=== PATIENT | male | born 1990 | race Caucasian/White ===

== ENCOUNTER 2017-08-16 15:54 | Emergency (ER) | payer OTHER ==
--- NOTE | 2017-08-16 16:05 | EDPHY ---
H & P Stated Complaint: RLQ abd pain Time Seen by Provider: 08/16/17 16:04 - Personal History Current Tetanus/Diphtheria Vaccine: Yes Current Tetanus Diphtheria and Acellular Pertussis (TDAP): Yes - Medical/Surgical History Hx Asthma: Yes Hx Chronic Respiratory Disease: No Hx Diabetes: No Hx Cardiac Disease: No Hx Renal Disease: No Hx Cirrhosis: No Hx Alcoholism: No Hx HIV/AIDS: No Hx Splenectomy or Spleen Trauma: No Other PMH: kidney stones, L leg fx, asthma - Social History Smoking Status: Former smoker Constitutional: Initial Vital Signs Temperature (C) 36.8 C 08/16/17 15:59 Heart Rate 77 08/16/17 15:59 Respiratory Rate 16 08/16/17 15:59 Blood Pressure 134/74 H 08/16/17 15:59 O2 Sat (%) 97 08/16/17 15:59 O2 Delivery Mode Room Air Allergies/Adverse Reactions: cefaclor [From Ceclor] Allergy (Verified 08/16/17 15:59) ketorolac [From Toradol] Allergy (Verified 08/16/17 15:59) Home Medications: Medication Instructions Recorded Doxycycline Hyclate 100 mg PO BID #20 tab 08/16/17 Medical Decision Making - Diagnostics Imaging Results: Imaging Impressions Abdomen/Pelvis CT 08/16/17 16:32 Impression: 1. Nonobstructive right-sided nephrolithiasis. 2. Punctate prostate calcification versus upper urethral calculus. Findings were communicated by telephone with Dr. Rich Mahajan MD at 2017 16:50 Imaging: Discussed imaging studies w/ call center agent Radiologist, I viewed and interpreted images myself ED Course/Re-evaluation: CHIEF COMPLAINT: Bilateral flank pain HISTORY OF PRESENT ILLNESS: The patient is a 27 y/o male with a history of kidney stones complaining of bilateral flank pain onset yesterday. The left-sided pain is radiating into his groin and he is unsure if he injured his testicle. The right-sided pain is not radiating. He thought he thought he passed a stone last night. Last abdominopelvic CT was 1 year ago. Denies fever, chest pain, shortness of breath , abdominal pain, paresthesias, numbness. REVIEW OF SYSTEMS: A 10 point review of systems was performed and is negative with the exception of the elements mentioned in the history of present illness. PHYSICAL EXAM: HR, BP, O2 Sat, RR. Temp noted General Appearance: Alert, well hydrated, appropriate, and non-toxic appearing. Head: Atraumatic without scalp tenderness or obvious injury Eyes: Pupils equal, round, reactive to light and accommodation, EOMI, no trauma , no injection. Ears: Clear bilaterally, no perforation, normal landmarks Nose: Atraumatic, no rhinorrhea, clear. Throat: There is no erythema or exudates, no lesions, normal tonsils, mucus membranes moist. Neck: Supple, nontender, no lymphadenopathy. Respiratory: No retractions, no distress, no wheezes, and no accessory muscle use. Lungs are clear to auscultation bilaterally. Cardiovascular: Regular rate and rhythm, no murmurs, rubs, or gallops. Good capillary refill all extremities. Gastrointestinal: Abdomen is soft, nontender, non-distended, no masses, no rebound, no guarding, no peritoneal signs. Groin: Erythema on glans penis. Musculoskeletal: Normal active ROM of all extremities, atraumatic. Neurological: Alert, appropriate, and interactive. Nonfocal neuro. Skin: No rashes, good turgor, no nodules on palpation. Past medical history: Kidney stones, left leg fracture, asthma Past surgical history: Denies Family history: Denies Social history: , employed, lives in [place] DIAGNOSTICS/PROCEDURES/CRITICAL CARE TIME: Abdominopelvic CT w/o contrast: Nephrolithiases in right kidney without obstruction, no sign of recent passing of stone DIFFERENTIAL DIAGNOSIS: The differential diagnosis for the patient's flank pain included but was not limited to possible urethritis and non-obstructing nephrolithiases, musculoskeletal causes, pyelonephritis, shingles, diverticulitis, appendicitis, and aortic aneurysm. MEDICAL DECISION MAKING: The patient is a 27 y/o male with a history of kidney stones complaining of bilateral flank pain, the left side pain is radiating to his groin, onset yesterday. His physical exam is benign. UA and abdominopelvic CT ordered. 4 tabs Percocet administered. 1630: Patient's UA does not reveal blood. 1649: Spoke with Dr. Garcia, radiologist; patient has nephrolithiases in right kidney without obstruction, there is no sign of recent passing of a stone. 1654: Reassessed patient and discussed imaging findings. I have prescribed him doxycycline for possible urethritis and non-obstructing nephrolithiases. Return precautions provided; patient is comfortable with this plan. - Data Points Laboratory Results: 08/16/17 08/16/17 16:10 16:00 Urine Color YELLOW Urine Appearance CLEAR Urine pH 6.0 (5.0-7.5) Ur Specific [place] 1.024 (1.002-1.030) Urine Protein NEGATIVE (NEGATIVE) Urine Ketones NEGATIVE (NEGATIVE) Urine Blood NEGATIVE (NEGATIVE) Urine Nitrate NEGATIVE (NEGATIVE) Urine Bilirubin NEGATIVE (NEGATIVE) Urine Urobilinogen NEGATIVE EU EU (0.2-1.0) Ur Leukocyte Esterase NEGATIVE (NEGATIVE) Urine RBC 1-3 /hpf /hpf (0-3) Urine WBC 1-3 /hpf /hpf (0-3) Ur Epithelial Cells NONE SEEN /lpf /lpf (NONE-1+) Urine Bacteria TRACE /hpf H /hpf (NONE SEEN) Urine Mucus TRACE /lpf /lpf (NONE-1+) Urine Glucose NEGATIVE (NEGATIVE) C.trachomatis RNA (TMA) Pending N.gonorrhoeae RNA (TMA) Pending Medications Given: Discontinued Medications Oxycodone/Acetaminophen (Percocet 5/325) 2 tab PO EDNOW ONE Stop: 08/16/17 16:32 Last Admin: 08/16/17 16:35 Dose: 2 tab Oxycodone/Acetaminophen (Percocet 5/325) 2 tab PO EDNOW ONE Stop: 08/16/17 16:32 Last Admin: 08/16/17 16:33 Dose: 2 tab Departure - Departure Disposition: Home, Routine, Self-Care Clinical Impression: Nephrolithiasis, Kidney stone on right side, Urethritis Condition: Good Instructions: Kidney Stones (ED), Nonspecific Urethritis in Men (ED) Additional Instructions: 1. Take Doxycycline as prescribed. 2. You have kidney stones on your right side. These are not obstructing. 3. Followup with your urologist within one week. 4. Return to the emergency apartment for fever, severe pain, inability to urinate or other concerns. Referrals: [facility],. [Clinic] - As per Instructions Kristian Huffman MD [Medical Doctor] - As per Instructions Prescriptions: Doxycycline Hyclate 100 mg PO BID #20 tab Report Scribed for: Rich Mahajan Report Scribed by: Latricia Lee Date of Report: 08/16/17 Time of Report: 16:21
[2017-08-16] MEDS ORDERED: OXYCODONE/APAP 5/325 TAB PO ONE ×2 (16:31)
[2017-08-16] MEDS ORDERED: OXYCODONE/APAP 5/325MG PREPACK#4 BTL TAKEHOME ONE (16:56)
[2017-08-16 17:12] VITALS: BP 129/78
[2017-08-19 13:44] LABS: GC AMPLIFICATION GENPROBE NEGATIVE (NEGATIVE)
== END 2017-08-16 17:12 | disposition home or self-care (01) ==
DX: N20.0 Calculus of kidney (principal); N34.2 Other urethritis; J45.909 Unspecified asthma, uncomplicated; B96.89 Other specified bacterial agents as the cause of diseases classified elsewhere; Z87.891 Personal history of nicotine dependence

== ENCOUNTER 2017-09-28 22:02 | Emergency (ER) | payer OTHER ==
[2017-09-28] MEDS ORDERED: ONDANSETRON DISINTEGRATING 4 MG TAB PO ONE (22:30)
--- NOTE | 2017-09-28 23:27 | EDPHY ---
H & P Time Seen by Provider: 09/28/17 22:20 HPI/ROS: CHIEF COMPLAINT: Laceration left elbow HISTORY OF PRESENT ILLNESS: 27-year-old male presents to the emergency department by private vehicle with laceration to the left elbow. Patient states that he was at home and he was caring some garbage and his left elbow brushed up against the mere of his car. He states stained laceration just prior to arrival. He believes his tetanus shot is current. He is right-hand dominant. Denies any other trauma or injury ROS: Denies numbness or tingling in his fingers, retained foreign body, bony pain. Past Medical/Surgical History: PTSD Social History: Smoking Status: Current every day smoker Physical Exam: On examination the patient has a 6 cm flap laceration to the posterior aspect of the left elbow. No evidence of retained foreign body. No tendon injuries identified. Normal sensation to light touch with normal 2 point discrimination. Strong radial pulse at the left wrist. No palpable bony tenderness. Full range of motion of the left upper extremity. Constitutional: Initial Vital Signs Temperature (C) 36.6 C 09/28/17 22:06 Heart Rate 110 H 09/28/17 22:06 Respiratory Rate 20 09/28/17 22:06 Blood Pressure 110/101 H 09/28/17 22:06 O2 Sat (%) 93 09/28/17 22:06 O2 Delivery Mode Room Air Allergies/Adverse Reactions: cefaclor [From Ceclor] Allergy (Verified 09/28/17 22:05) ketorolac [From Toradol] Allergy (Verified 09/28/17 22:05) Home Medications: Medication Instructions Recorded oxyCODONE CR 09/28/17 MDM/Departure - MDM Procedures: Laceration repair. Verbal consent was obtained from the patient. The 6 cm laceration on the left elbow was anesthetized using 1% lidocaine with epinephrine. The wound was irrigated with saline, draped and explored to its base with a gloved finger. There were no deep structures involved. No tendon injury was identified. The wound was repaired with 4 0 Vicryl, 4 sutures and 4 0 Ethilon, 10 sutures. The wound repair was complex. The procedure was performed by myself. Medications Given: Discontinued Medications Ondansetron HCl (Zofran Odt) 4 mg PO EDNOW ONE Stop: 09/28/17 22:31 Last Admin: 06/09/18 22:32 Dose: 4 mg ED Course/Re-evaluation: 27-year-old male presents to the emergency department with left elbow laceration. The wound was repaired, see procedure note. The patient was given wound care precautions. The patient was feeling nauseous because of the pain and requested Zofran. He was given 4 mg Zofran ODT. - Depart Disposition: Home, Routine, Self-Care Clinical Impression: Laceration of left elbow Qualifiers: Encounter type: initial encounter Qualified Code(s): S51.012A - Laceration without foreign body of left elbow, initial encounter Condition: Good Instructions: Laceration (ED), Care For Your Stitches (ED), Acute Wounds (ED) Additional Instructions: Wound Care Follow-Up: Removal of sutures in 10 days. Suture removal is complimentary in uncomplicated cases. Infection or abnormal findings would require reevaluation by the MD. In that case, you may be billed. Return if he notices any signs or symptoms of infection such as redness, swelling, increased pain, fever, purulent drainage. Keep wound dry, clean and protected. Referrals: Holli Che MD [Doctor of Osteopathy] - 2-3 days, if not improved (Primary care provider crowd controller)
[2017-09-28 23:39] VITALS: BP 108/88
--- NOTE | 2017-10-02 14:57 | EDPHY ---
[facility] Patient Name: DL THOMAS Rpt#: [id number] Unit Number: [id number] ER Physician: Latrice FARIAS Patient Type: DEP ER Adm Date/Source: 09/28/17 EMR Discharge Date: 09/28/17 Primary Carrier: [facility] EM[facility]PARTMENT PROVIDER REPORT H P Time Seen by Provider: 09/28/17 22:20 HPI/ROS: CHIEF COMPLAINT: Laceration left elbow HISTORY OF PRESENT ILLNESS: 27-year-old male presents to the emergency department by private vehicle with laceration to the left elbow. Patient states that he was at home and he was caring some garbage and his left elbow brushed up against the mere of his car. He states stained laceration just prior to arrival. He believes his tetanus shot is current. He is right-hand dominant. Denies any other trauma or injury ROS: Denies numbness or tingling in his fingers, retained foreign body, bony pain. Past Medical/Surgical History: PTSD Social History: Smoking Status: Current every day smoker Physical Exam: On examination the patient has a 6 cm flap laceration to the posterior aspect of the left elbow. No evidence of retained foreign body. No tendon injuries identified. Normal sensation to light touch with normal 2 point discrimination. Strong radial pulse at the left wrist. No palpable bony tenderness. Full range of motion of the left upper extremity. Constitutional: Initial Vital Signs Temperature (C) 36.6 C 09/28/17 22:06 Heart Rate 110 H 09/28/17 22:06 Respiratory Rate 20 09/28/17 22:06 Blood Pressure 110/101 H 09/28/17 22:06 O2 Sat (%) 93 09/28/17 22:06 O2 Delivery Mode Room Air Allergies/Adverse Reactions: cefaclor [From Ceclor] Allergy (Verified 09/28/17 22:05) ketorolac [From Toradol] Allergy (Verified 09/28/17 22:05) Home Medications: Medication Instructions Recorded oxyCODONE CR 09/28/17 MDM/Departure - MDM Procedures: Laceration repair. Verbal consent was obtained from the patient. The 6 cm laceration on the left elbow was anesthetized using 1% lidocaine with epinephrine. The wound was irrigated with saline, draped and explored to its base with a gloved finger. There were no deep structures involved. No tendon injury was identified. The wound was repaired with 4 0 Vicryl, 4 sutures and 4 0 Ethilon, 10 sutures. The wound repair was complex. The procedure was performed by myself. Medications Given: Discontinued Medications Ondansetron HCl (Zofran Odt) 4 mg PO EDNOW ONE Stop: 09/28/17 22:31 Last Admin: 09/28/17 22:32 Dose: 4 mg ED Course/Re-evaluation: 27-year-old male presents to the emergency department with left elbow laceration. The wound was repaired, see procedure note. The patient was given wound care precautions. The patient was feeling nauseous because of the pain and requested Zofran. He was given 4 mg Zofran ODT. - Depart Disposition: Home, Routine, Self-Care Clinical Impression: Laceration of left elbow Qualifiers: Encounter type: initial encounter Qualified Code(s): S51.012A - Laceration without foreign body of left elbow, initial encounter Condition: Good Instructions: Laceration (ED), Care For Your Stitches (ED), Acute Wounds (ED) Additional Instructions: Wound Care Follow-Up: Removal of sutures in 10 days. Suture removal is complimentary in uncomplicated cases. Infection or abnormal findings would require reevaluation by the MD. In that case, you may be billed. Return if he notices any signs or symptoms of infection such as redness, swelling, increased pain, fever, purulent drainage. Keep wound dry, clean and protected. Referrals: Holli Che MD [Doctor of Osteopathy] - 2-3 days, if not improved (Primary care provider television actor) *This report may have been compiled using a voice recognition system, and might contain typographical errors and blanks.* Latrice Concepcion MD 09/28/17 [id number] <Electronically signed by Latrice FARIAS> 06/12/18 0812 <Electronically signed by Carmelo Concepcion MD> 23 T: PAM 09/28/172323 CC: NONE *PRIMARY CARE PHYS ONLY*
== END 2017-09-28 23:39 | disposition home or self-care (01) ==
PROC: 0HQEXZZ Repair Left Lower Arm Skin, External Approach (ICD-10-PCS; principal; 2017-09-28)
DX: S51.012A Laceration without foreign body of left elbow, initial encounter (principal); F17.200 Nicotine dependence, unspecified, uncomplicated; W26.8XXA Contact with other sharp object(s), not elsewhere classified, initial encounter; Y92.009 Unspecified place in unspecified non-institutional (private) residence as the place of occurrence of the external cause; Y99.8 Other external cause status; Y93.89 Activity, other specified

== ENCOUNTER 2017-10-13 21:53 | Emergency (ER) | payer OTHER ==
[2017-10-13] MEDS ORDERED: NS 1,000 ML IV ONE ×2 (22:00→22:24)
[2017-10-13] MEDS ORDERED: LORazepam 2 MG/ML INJ IVP ONE (22:03)
--- NOTE | 2017-10-13 22:03 | EDPHY ---
H & P Source: Patient, Police, EMS - Medical/Surgical History Hx Asthma: Yes Hx Chronic Respiratory Disease: No Hx Diabetes: No Hx Cardiac Disease: No Hx Renal Disease: No Hx Cirrhosis: No Hx Alcoholism: No Hx HIV/AIDS: No Hx Splenectomy or Spleen Trauma: No Other PMH: kidney stones, L leg fx, asthma - Social History Smoking Status: Current every day smoker Time Seen by Provider: 10/13/17 22:01 HPI/ROS: HPI CHIEF COMPLAINT: M1 hold by police. HISTORY OF PRESENT ILLNESS: Patient is a 27-year-old male, he was brought in by ambulance with police escort any is on M1 hold for acute agitation. Aggressive behavior. And what appears to be self-inflicted cuts. EMS reports that he was in a hotel causing disturbance, people in the hotel state that he was causing disturbance they became concerned police were contacted when police arrived they opened his door found him with blood all over him and blood all over the hotel room any appeared acutely agitated. EMS was called. They brought him here to the emergency room upon arrival to the emergency room is diaphoretic his heart rate is 150. He appears acutely agitated. Patient is excited. However he tells me that he is always like this. He does have pressured speech. Past Medical History: PTSD Past Surgical History: Multiple orthopedic surgeries including knee on his left leg Social History: He denies any drugs or alcohol. Family History: Noncontributory ROS REVIEW OF SYSTEMS: A comprehensive 10 point review of systems is otherwise negative aside from elements mentioned in the history of present illness. Exam Constitutional a vital signs noted be tachycardic heart rate 150 triage nursing summary reviewed, vital signs reviewed, awake/alert. Eyes normal conjunctivae and sclera, EOMI, PERRLA. HENT normal inspection, atraumatic, moist mucus membranes, no epistaxis, neck supple/ no meningismus, no raccoon eyes. Respiratory clear to auscultation bilaterally, normal breath sounds, no respiratory distress, no wheezing. Cardiovascular tachycardic, regular rhythm, no murmur, no edema, distal pulses normal. Gastrointestinal soft, non-tender, no rebound, no guarding, normal bowel sounds, no distension, no pulsatile mass. Genitourinary no CVA tenderness. Musculoskeletal no midline vertebral tenderness, full range of motion, no calf swelling, no tenderness of extremities, no meningismus, good pulses, neurovascularly intact. Skin diaphoretic dripping and sweat Neurologic awake, alert and oriented x 3, AAOx3, moves all 4 extremities equally, motor intact, sensory intact, CN II-XII intact, normal cerebellar, normal vision, normal speech. Psychiatric agitated, hyperkinetic, excited, pressured speech Heme/Lymph/Immune no lymphadenopathy. Differential Diagnosis: Includes but is not limited to in a particular order excited delirium, hyperthermia, electrolyte disturbance, dehydration, drug intoxication, acute psychosis Medical Decision Making: Plan for this patient IV establishment IV fluid bolus , IV Ativan for sedation, full potline monitor obtain EKG, electrolytes, CK for rhabdo , monitor vitals closely Re-evaluation: 0621AM: Patient has been resting in no acute distress. He did receive 1 mg IV Ativan. This been sleeping most of the evening. 0700: Patient signed over at 7:00 a.m. Shift change to Dr. Gibson. Patient pending EVal. (Carmelo Concepcion) Constitutional: Initial Vital Signs Temperature (C) 37.4 C 10/13/17 22:04 Heart Rate 120 H 10/13/17 22:04 Respiratory Rate 18 10/13/17 22:04 Blood Pressure 111/87 H 10/13/17 22:04 O2 Sat (%) 92 10/13/17 22:04 O2 Delivery Mode Room Air Allergies/Adverse Reactions: cefaclor [From Ceclor] Allergy (Verified 09/28/17 22:05) ketorolac [From Toradol] Allergy (Verified 09/28/17 22:05) Home Medications: Medication Instructions Recorded oxyCODONE CR 09/28/17 Medical Decision Making Procedures: My involvement the care this patient is solely for procedure. Please see the note of the attending physician for all other aspects of care. PROCEDURE: Laceration repair Consent: Verbal Location: Left medial ankle Length of repair: 4 cm, U shaped with some tissue avulsion Complexity: Complex Layer involvement: Single Anesthesia: Local. 1% lidocaine with epinephrine, 5 mL Irrigation: Extensive Debridement: None Procedure description: Following good anesthesia, the wound was copiously irrigated. Wound bed was explored with a sterile glove, and there is no foreign body noted. No injury to underlying fascia, muscle or vascular body. Wound borders were approximated well with good hemostasis. Tolerated well without complication. Suture/Staple material: 4-0 Prolene, 8 simple interrupted sutures Wound care: Routine as discussed Suture/Staple removal: 10 Days (Jere Ohara) Other Provider: I assumed care of the patient at 0700. 7:30 a.m.: The patient was evaluated by the psychiatric team at [facility]. The patient is denying suicidal ideation. The patient contracts for safety. He presents to the ED for problems related to PTSD. The patient was also having some disagreement with his last night. The patient 's mood is stabilized. He is appropriate. He would like to be discharged and go to work. The case was discussed with Dr. Giancarlo Andrade who vacated the patient's psychiatric hold. (Romeo Gibson) - Data Points Laboratory Results: Laboratory Results 10/13/17 22:26 10/13/17 22:26 10/13/17 10/13/17 10/13/17 22:30 22:26 22:26 WBC 15.46 10^3/uL H 10^3/uL (3.80-9.50) RBC 4.52 10^6/uL 10^6/uL (4.40-6.38) Hgb 13.9 g/dL g/dL (13.7-17.5) Hct 40.4 % % (40.0-51.0) MCV 89.4 fL fL (81.5-99.8) MCH 30.8 pg pg (27.9-34.1) MCHC 34.4 g/dL g/dL (32.4-36.7) RDW 13.5 % % (11.5-15.2) Plt Count 260 10^3/uL 10^3/uL (150-400) MPV 10.7 fL fL (8.7-11.7) Neut % (Auto) 83.8 % H % (39.3-74.2) Lymph % (Auto) 5.7 % L % (15.0-45.0) [place] % (Auto) 8.7 % % (4.5-13.0) Eos % (Auto) 0.1 % L % (0.6-7.6) Baso % (Auto) 0.3 % % (0.3-1.7) Nucleat RBC Rel Count 0.0 % % (0.0-0.2) Absolute Neuts (auto) 12.97 10^3/uL H 10^3/uL (1.70-6.50) Absolute Lymphs (auto) 0.88 10^3/uL L 10^3/uL (1.00-3.00) Absolute Monos (auto) 1.34 10^3/uL H 10^3/uL (0.30-0.80) Absolute Eos (auto) 0.02 10^3/uL L 10^3/uL (0.03-0.40) Absolute Basos (auto) 0.04 10^3/uL 10^3/uL (0.02-0.10) Absolute Nucleated RBC 0.00 10^3/uL 10^3/uL (0-0.01) Immature Gran % 1.4 % H % (0.0-1.1) Immature Gran # 0.21 10^3/uL H 10^3/uL (0.00-0.10) Sodium 137 mEq/L mEq/L (135-145) Potassium 3.6 mEq/L mEq/L (3.3-5.0) Chloride 99 mEq/L mEq/L (97-110) Carbon Dioxide 20 mEq/l L mEq/l (22-31) Anion Gap 18 mEq/L H mEq/L (8-16) BUN 11 mg/dL mg/dL (7-23) Creatinine 1.9 mg/dL H mg/dL (0.7-1.3) Estimated GFR 43 Glucose 119 mg/dL H mg/dL (70-100) Calcium 10.0 mg/dL mg/dL (8.5-10.4) Creatine Kinase 440 IU/L H IU/L (0-224) CK-MB (CK-2) Fraction 2.86 ng/mL ng/mL (0.00-4.55) CK-MB (CK-2) % 0.7 % % (0.0-4.0) Creatine Kinase Interp NEGATIVE (NEGATIVE) Salicylates < 1.0 mg/dL L mg/dL (2.0-20.0) Urine Opiates Screen NEGATIVE (NEGATIVE) Acetaminophen < 10 mcg/mL L mcg/mL (10-30) Urine Barbiturates NEGATIVE (NEGATIVE) Ur Phencyclidine Scrn NEGATIVE (NEGATIVE) Ur Amphetamine Screen NEGATIVE (NEGATIVE) U Benzodiazepines Scrn NEGATIVE (NEGATIVE) Urine Cocaine Screen NEGATIVE (NEGATIVE) U Marijuana (THC) Screen NON-NEGATIVE H (NEGATIVE) Ethyl Alcohol < 10 mg/dL mg/dL (0-10) Medications Given: Discontinued Medications Sodium Chloride (Ns) 1,000 mls @ 0 mls/hr IV EDNOW ONE; Wide Open PRN Reason: Protocol Stop: 10/13/17 22:01 Last Admin: 10/13/17 22:30 Dose: 1,000 mls Sodium Chloride (Ns) 1,000 mls @ 0 mls/hr IV ONCE ONE PRN Reason: Wide Open Stop: 10/13/17 22:25 Last Admin: 10/13/17 23:52 Dose: 1,000 mls Lorazepam (Ativan Injection) 1 mg IVP EDNOW ONE Stop: 10/13/17 22:04 Last Admin: 10/13/17 23:51 Dose: 1 mg Nicotine (Nicoderm Cq) 21 mg TD EDNOW ONE Stop: 10/13/17 23:46 Last Admin: 10/13/17 23:52 Dose: 21 mg Departure - Departure Disposition: Home, Routine, Self-Care Clinical Impression: Agitation, PTSD (post-traumatic stress disorder), Elevated serum creatinine Condition: Good Instructions: Post Traumatic Stress Disorder (ED) Additional Instructions: 1. Please follow-up with the mental health resources provided in the ED today. 2. [facility] does operate a 12/11 psychiatric crisis unit located at [address] [place] [address]. The telephone number for the 24 hour crisis center is [phone]. 3. Please return to the ED if you are feeling suicidal, having thoughts of harming yourself/others or should you feel unsafe or have worsening symptoms. 4. You did have a slight elevation of 1 of your kidney function test noted in the ED today. This may be simply the result of mild dehydration. I do recommend scheduling a follow-up appointment with a primary care provider for a recheck of your kidney function in 2 weeks. You have been given the contact number of Dr. Carmelo Beck our on-call primary care provider if you do not have a primary care physician. Referrals: [facility],. [Clinic] - As per Instructions Carmelo Beck MD [Medical Doctor] - As per Instructions
--- NOTE | 2017-10-13 22:23 | CPEKG ---
Heart Rate: 116 RR Interval: 517 P-R Interval: 180 QRSD Interval: 86 QT Interval: 292 QTC Interval: 406 P Koppel: 29 QRS Koppel: -3 T Wave Koppel: 17 EKG Severity - ABNORMAL ECG - EKG Impression: SINUS TACHYCARDIA EKG Impression: CONSIDER LEFT VENTRICULAR HYPERTROPHY Electronically Signed By: Carmelo Concepcion 14-Oct-2017 06:30:11
[2017-10-13 22:38] LABS: PLATELET COUNT 260 10^3/uL (150-400)
[2017-10-13 22:49] LABS: CREATINE KINASE 440 IU/L (0-224)
[2017-10-13] MEDS ORDERED: NICOTINE 21 MG/24 HR PATCH TD ONE (23:45)
[2017-10-14 05:00] VITALS: BP 107/64
--- NOTE | 2017-10-14 08:47 | ASMTTLCEVL ---
TLC Evaluation - Basic Information Evaluation Start Date and 10/14/2017 06:30 AM Time Hospital Status Answers: M1 Hold 72-hr M1 Hold Start Date 10/13/2017 09:30 PM and Time Patient statement Notes: "I was crying last night because a friend killed himself 4 days ago". When pt was asked "Tell me what happened", pt responded, "none of your business. I'm not suicidal, I wasn't trying to kill myself and I don't want to kill myself now. I've never tried to kill myself either. 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 Per M1 Hold: "Respondent was in his hotel room yelling and smashing items. He was contacted and found tohave several recent significant cuts to his feet and arm. Respondent refused medical treatment and minimized regarding significance of his wounds. Stated he is a vet suffering from ptsd. Appeared to be under the influence of a stimulant altering decision making." Pt reported having cut his left heel on "something" while at the hotel, but denied having self-inflicted the cut to his left heel. Diagnosis History Notes: Per M1 Hold, officer noted pt reporting history of PTSD. During interview, pt denied any past mental health history. Pt appeared to be not fully cooperative in providing history to cafe associate, as EHR notes indicated pt had been tried on several antidepressant medications in the past and had been on Xanax 4 mg daily two years ago. Prior suicide attempts Notes: Pt denied any past history of suicide attempts. Prior hospitalizations Notes: Pt denied any past history of psychiatric hospitalizations. Treatment Responses Notes: Pt stated having no intentions of seeking follow up with a psychiatrist, psych meds, or counseling. History of violence Notes: None reported. Therapist: None Psychiatrist: None Medications (name, dosage, route, freq uency) Notes: Oxycontin 15 mg po 4 times daily Allergies/Reaction Notes: None reported Sleep Notes: Pt reported no sleeping pattern changes. Appetite Notes: Pt reported having no changes in appetite. Pt appeared to be well nourished and moderately overweight. Medical/Surgical history Notes: Pt reported having orthopedic sugeries on his left knee, hip and ankle in 2011. Substance use history (frequency, intensity, his tory, duration) Notes: Pt reported having first tried alcohol at age 13. He reported he has not had any alcohol for over a year. BAL results were negative for alcohol. UDS positive for Marijuana. Pt reported he first tried marijuana at age 16 and that he smoke it nightly at bedtime for sleep. He reported his last use of marijuana was yesterday afternoon. Pt denied any history of use of any other illicit substances. Family composition Notes: Parents both living and remain to one another. They reside in the [place] area. Pt has a 29 yo sister. Need for family Answers: No participation in patient's care Family psychiatric/substance abuse history Notes: None reported Developmental history Notes: Pt reported growing up in the [place] area. Pt appeared to have achieved normal childhood developmental milestones. Pt denied any childhood history of TBI's, LOC or concussions. Pt denied any childhood history of physical, emotional or sexual abuse/trauma. Abuse concerns Answers: None Marital status/children Notes: Pt is to Lalitha, for the past 4 years. They have a one year old son together. Living situation Notes: Pt resides with his and 1 yo son. Sexual history/orientation Notes: Hererosexual Peer support/family strengths Notes: Pt identified "my family" as his primary support. Education level/history Notes: Pt reported having graduated from high school and obtained an associates degree in general studies. He added wanting to return back to school to get his bachelor's degree. 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 Legal Notes: Pt reported getting a DUI in 2013 and was required to attend alcohol education II classes, community service. Sabianist/Spiritual Notes: Pt reported being Rastafarian. None identified which would impact treatment. Leisure Notes: Pt reported he enjoys spending time with his son, hiking, being on the beach. Collateral Notes: Per , Lalitha. TLC Evaluation - Mental Status Exam Appearance: Answers: Appropriate Unclean Unkempt Eye Contact: Answers: Intermittent Mood: Answers: Irritable Affect: Answers: Congruent w/ Mood Guarded Irritable Behavior: Answers: Uncooperative Guarded Resistive to Care Restless Speech: Answers: Relevant Logical Clear Coherent Soft Thought Process: Answers: Organized Oriented Alert Goal Oriented Intact Insight: Answers: Poor Judgement: Answers: Fair Manic Signs/Symptoms Answers: Impulsivity Irritability Depression Answers: Diminished Pleasure Signs/Symptoms: Psychomotor Agitation Sad Mood Hallucinations: Answers: None Current Stage of Change Answers: Precontemplation Pt reported to have Answers: No suicidal/self-injuring ideation/behavior? Pt reported to be making Answers: No suicidal/self-injuring threats? Pt reported to have Answers: No aggression/assault ideation/behavior? Pt reported to be making Answers: No aggression/assault threats? Pt exhibits inability to Answers: No care for self/grave disability? Ideation/behavior is Answers: No chronic? Patient has a specific Answers: No plan? Pt has access to means to Answers: No execute the plan? Ideation involves Answers: No serious/lethal intent? Ideation has Answers: No delusional/hallucinatory content? History of Answers: No suicidal/self-injuring ideation, behavior, or threats? History of Answers: No aggressive/assaultive ideation, behavior, or threats? History of serious Answers: No physical harm to self/others while in treatment setting? [facility] Evaluation - Suicide/Homicide Risk Suicide Risk Factors: Answers: Agitation Cluster "B" D/O or Traits Impulsivity Inadequate Social Support Homicide/violence risk Answers: None factors: Current Suicidal Answers: No Ideation? Current Suicidal Ideation Answers: No in the Past 48 Hours? Current Suicidal Ideation Answers: No in the Past Month? Current Suicidal Answers: No Ideation, Worst Ever? Suicide Internal Answers: Other Notes: Denied recent/current Protective Factors: suicidal ideation/intent/plans t o harm self Suicide External Answers: Positive Therapeutic Protective Factors: Relationships Responsibility to Children Ranking of patient's Answers: Low suicidal risk: Ranking of patient's Answers: Low homicidal risk: TLC Evaluation - Wrap-up BDI Total Score: 14 BDI Question #2 Score: 1 BDI Question #9 Score: 0 BSS Total Score: 0 AXIS I Diagnosis (include DSM-V and ICD-10 codes), must also be entered in iodine, which is the source of truth. Notes: POSTTRAUMATIC STRESS DISORDER 309.81 (F43.10) CANNABIS USE DISORDER, MODERATE 304.30 (F12.20) IN CONSULTATION WITH [facility] ED PHYSICIAN, LISANDRO VELARDE MD, AND ON-CALL PSYCHIATRIST, HARMONY CLEANING MD, BOTH CONCURRED THAT PT DOES NOT APPEAR TO MEET 27-65 CRITERIA REQUIRING PSYCHIATRIC HOSPITALIZATION PT DOES NOT APPEAR TO BE AN IMMINENT RISK OF HARM TO SELF/OTHERS/GRAVELY DISABLED DUE TO A MENTAL ILLNESS CONDITION. DR. CLEANING PROVIDED TELEPHONE ORDER READ BACK VACATING HOLD AT 0715 HRS Evaluation End Date and 10/14/2017 08:05 AM Time (HH:MM): Date Signed: 10/14/2017 08:08 AM Electronically Signed By:Arun Nelson
--- NOTE | 2017-10-14 08:59 | ASMTTCLDSP ---
TLC Discharge Disposition Disposition: Answers: Discharge If Answers: Yes DISCHARGED: Patient/family given suicide hotline info & [facility] brochure? Disposition Notes: Notes: IN CONSULTATION WITH [facility] ED PHYSICIAN, QUITA ADAM MD, AND ON-CALL PSYCHIATRIST, HARMONY CLEANING MD, BOTH CONCURRED THAT PT DOES NOT APPEAR TO MEET 27-65 CRITERIA REQUIRING PSYCHIATRIC HOSPITALIZATION PT DOES NOT APPEAR TO BE AN IMMINENT RISK OF HARM TO SELF/OTHERS/GRAVELY DISABLED DUE TO A MENTAL ILLNESS CONDITION. DR. CLEANING PROVIDED TELEPHONE ORDER READ BACK VACATING M1 HOLD AT 0715 HRS. Discharge Concerns/Recommendations: Notes: PT STATED COMMITMENT OR ABILITY TO KEEP SELF SAFE, DENIED THOUGHTS OF SELF HARM OR HARM TO OTHERS. PT WAS GIVEN LOCAL HOTLINE INFORMATION AND [facility] BROCHURE AFTER AN ATTEMPT. Was patient given the Answers: Not applicable Inpatient Behavioral Health Prohibited Belongings List while in the ED? Psychiatrist vacating M1 Harmony Cleaning MD Hold: Date and time M1 hold 10/14/2017 07:15 AM vacated (time format is hh:mm): Type of Hold: Answers: /72-hour Hold Hold initiated by: Answers: Police Date Signed: 10/14/2017 08:58 AM Electronically Signed By:Arun Nelson
== END 2017-10-14 07:53 | disposition home or self-care (01) ==
LOC: EDUNIT#
PROC: 0HQKXZZ Repair Right Lower Leg Skin, External Approach (ICD-10-PCS; principal; 2017-10-13)
DX: R45.1 Restlessness and agitation (principal); S91.012A Laceration without foreign body, left ankle, initial encounter; F43.10 Post-traumatic stress disorder, unspecified; R79.89 Other specified abnormal findings of blood chemistry; J45.909 Unspecified asthma, uncomplicated; F17.200 Nicotine dependence, unspecified, uncomplicated; X78.9XXA Intentional self-harm by unspecified sharp object, initial encounter; Y92.59 Other trade areas as the place of occurrence of the external cause; Y99.8 Other external cause status; Y93.89 Activity, other specified
CPT/HCPCS: 80305; 96374; G0480; J2060